=== PATIENT | female | born 2000 | race Two or more races ===

== ENCOUNTER 2021-09-26 13:27 | Emergency (ER) | payer OTHER ==
[~2021-09-26] VITALS: Ht 157.5 cm; Wt 52.6 kg
== END 2021-09-26 16:19 | disposition home or self-care (01) ==
LOC: ER 13:27
DX: M94.0 Chondrocostal junction syndrome [Tietze] (principal)

== ENCOUNTER 2023-02-04 14:07 | Emergency (ER) | payer OTHER ==
[~2023-02-04] VITALS: Ht 152.4 cm; Wt 59.0 kg
[2023-02-04] MEDS ORDERED: NEO-POLY-DEXAM3.5 G1 OP (14:21)
[2023-02-04] MEDS ORDERED: CLINDAMYCI75 MG/5 M1 PO (14:22)
[2023-02-04] MEDS ORDERED: CLEOCIN HCL300 MG PO (15:06)
== END 2023-02-04 15:14 | disposition home or self-care (01) ==
LOC: ER 14:07
DX: H00.021 Hordeolum internum right upper eyelid (principal); H00.11 Chalazion right upper eyelid